=== PATIENT | female | born 1960 | race Caucasian/White ===

== ENCOUNTER 2017-05-24 05:55 | Day surgery (SDC) | payer BC, OTHER ==
[2017-05-24] MEDS ORDERED: Midazolam 1 MG/ML 2 ML SDV ONE (07:50)
[2017-05-24] MEDS ORDERED: fentaNYL 100 MCG/2 ML SDV ONE (07:50)
[2017-05-24] MEDS ORDERED: Propofol 200 MG/20 ML SDV ONE ×2 (07:50→08:35)
[2017-05-24] MEDS ORDERED: Lactated Ringers 1,000 ML IV SCH (08:30)
[2017-05-24 09:42] VITALS: BP 124/73
--- NOTE | 2017-05-24 14:38 | OR ---
DATE OF PROCEDURE: 05/24/2017 PREOPERATIVE DIAGNOSIS: Strong family history of colon cancer in sister and mother. POSTOPERATIVE DIAGNOSES: Diverticulosis, strong family history of colon cancer in sister and mother. PROCEDURE: Colonoscopy to the cecum. ANESTHESIA: IV anesthesia with monitored anesthesia care. INDICATION: This 57-year-old white female is referred for a colonoscopy because of a strong family history of colon cancer, both her mother and sister had colon cancer. She says her last colonoscopic exam was done about 5 years ago. I counseled her for the procedure including risks and alternatives, and she gave her informed consent to proceed. DESCRIPTION OF PROCEDURE: The patient was placed in a left lateral decubitus position. IV anesthesia was administered by the Anesthesia Service. Time-out was held. A rectal exam was performed, which was unremarkable. The flexible video Olympus colonoscope was introduced through her anus, up her rectum, and out her colon, all the way to the cecum. En route, we saw several left-sided diverticula. There was no bleeding or inflammation associated with any of them. Once the cecum was reached, the scope was slowly withdrawn, examining the mucosa throughout. No additional mucosal abnormalities were noted. The scope was retroflexed in the rectum with the distal rectum appearing unremarkable. The scope was straightened and removed. She tolerated the procedure well. PLAN: Repeat colonoscopy in 5 years. Sahil Parisi MD /[id number]
== END 2017-05-24 09:50 | disposition home or self-care (01) ==
LOC: JP.SDS 05:55
PROVIDERS: ATTEND Surgery
DX: Z12.11 Encounter for screening for malignant neoplasm of colon (principal); K57.30 Diverticulosis of large intestine without perforation or abscess without bleeding; Z80.0 Family history of malignant neoplasm of digestive organs; Z88.6 Allergy status to analgesic agent
CPT/HCPCS: 45378; J2250; J2704; J3010; J7120

== ENCOUNTER 2021-03-19 13:13 | Emergency (ER) | payer OTHER ==
[2021-03-19] MEDS ORDERED: Morphine 4 MG/ML Syringe IVPUSH PRN (14:06)
[2021-03-19] MEDS ORDERED: Aspirin 81 MG Tab.Chew PO ONE (14:06)
--- NOTE | 2021-03-19 14:09 | EDM.PDOC ---
ED HPI GENERAL MEDICAL PROBLEM - General Chief Complaint: Chest Pain Stated Complaint: CHEST PAIN Time Seen by Provider: 03/19/21 14:01 Source of Information: Reports: Patient, Family, RN Notes Reviewed History Limitations: Reports: No Limitations - History of Present Illness INITIAL COMMENTS - FREE TEXT/NARRATIVE: 61-year-old female presents emergency department day complaint of chest pain, she has had chest pain for the last 3 days comes and goes right now she describes it may be 3 or 4 out of 10 as a burning sensation she has had most of the day no nausea vomiting does feel short of breath when the pain gets intense she has no significant cardiac history family history mother had some type of heart disease but unknown details. Ex-smoker many years ago Middle Chest Pain Score (Numeric/FACES): 5 - Related Data Allergies Allergy/AdvReac Type Severity Reaction Status Date / Time acetaminophen [From Tylenol] Allergy Stomach Verified 03/19/21 13:46 Upset Home Meds: Home Meds Thyroid,Pork [[place] Thyroid] 90 mg PO DAILY 03/29/16 [History] Ascorbic Acid [Vitamin C] 1,000 mg PO DAILY 05/21/17 [History] Cholecalciferol (Vitamin D3) [Vitamin D3] 1,000 unit PO DAILY 05/21/17 [History] Iodine [Kelp] 225 mcg PO DAILY 05/21/17 [History] Magnesium Oxide [Magnesium] 400 mg PO DAILY 05/21/17 [History] Worton 3,6,9 Combination No.7 [Worton Dha] 92 mg PO DAILY 05/21/17 [History] Ubidecarenone [Coenzyme Q10] 400 mg PO DAILY 05/21/17 [History] Aspirin [Halfprin] 81 mg PO ASDIRECTED PRN 03/19/21 [History] Past Medical History HEENT History: Reports: Cataract, Impaired Vision 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: , 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 Musculoskeletal History: Reports: Back Pain, Chronic, Other (See Below) Other Musculoskeletal History: neck pain Endocrine/Metabolic History: Reports: Hypothyroidism, Obesity/BMI 30+ Hematologic History: Reports: Blood Transfusion(s) Oncologic (Cancer) History: Reports: Squamous Cell Carcinoma - Infectious Disease History Infectious Disease History: Reports: Chicken Pox, Measles, Mumps, Scarlet Fever - Past Surgical History Head Surgeries/Procedures: Reports: None HEENT Surgical History: Reports: None GI Surgical History: Reports: Colonoscopy Female Surgical History: Reports: Tubal Ligation Endocrine Surgical History: Reports: None Musculoskeletal Surgical History: Reports: None Oncologic Surgical History: Reports: None Dermatological Surgical History: Reports: None Social & Family History - Tobacco Use Tobacco Use Status *Q: Former Tobacco User Used Tobacco, but Quit: Yes Month/Year Tobacco Last Used: 1986 - Caffeine Use Caffeine Use: Reports: Coffee - Recreational Drug Use Recreational Drug Use: No ED ROS GENERAL - Review of Systems Review Of Systems: See Below Constitutional: Reports: No Symptoms HEENT: Reports: No Symptoms Respiratory: Reports: Shortness of Breath Cardiovascular: Reports: Chest Pain GI/Abdominal: Reports: No Symptoms ED EXAM, GENERAL - Physical Exam Exam: See Below Exam Limited By: No Limitations General Appearance: Alert, WD/WN, No Apparent Distress Respiratory/Chest: No Respiratory Distress, Lungs Clear, Normal Breath Sounds, No Accessory Muscle Use, Chest Non-Tender Cardiovascular: Regular Rate, Rhythm, No Murmur GI/Abdominal: Soft, Non-Tender #1 Interpretation EKG Date: 03/19/21 Time: 14:38 Rhythm: NSR [place]: Normal P-Wave: Present QRS: Normal ST-T: Normal QT: Normal Comparison: NA - No Prior EKG Course - Vital Signs Last Recorded V/S: Last Vital Signs Temp 94.5 F L 03/19/21 13:45 Pulse 63 03/19/21 18:18 Resp 24 H 03/19/21 18:18 BP 136/68 03/19/21 18:18 Pulse Ox 97 03/19/21 18:18 - Orders/Labs/Meds Orders: Active Orders 24 hr Category Date Time Status Cardiac Monitoring [RC] .As Directed Care 03/19/21 14:06 Active Peripheral IV Care [RC] . DIRECTED Care 03/19/21 15:28 Active Iopamidol [Isovue-370 (76%)] Med 03/19/21 15:45 Active 100 ml IV . DIRECTED Morphine Med 03/19/21 14:06 Active 4 mg IVPUSH Q10M PRN Nitroglycerin [Nitrostat] Med 03/19/21 14:06 Active 0.4 mg SL Q5M PRN Sodium Chloride 0.9% [Normal Saline] 1,000 ml Med 03/19/21 15:30 Active IV ASDIRECTED Sodium Chloride 0.9% [Normal Saline] 100 ml Med 03/19/21 15:45 Active IV ASDIRECTED Sodium Chloride 0.9% [Saline Flush] Med 03/19/21 15:28 Active 10 ml FLUSH ASDIRECTED PRN Peripheral IV Insertion Adult [OM.PC] Urgent Oth 03/19/21 15:28 Ordered EKG 12 Lead [EK] Stat Ther 03/19/21 14:07 Ordered Medication Orders Sodium Chloride (Normal Saline) 1,000 mls @ 500 mls/hr IV ASDIRECTED FAVIOLA Last Admin: 03/19/21 17:00 Dose: 500 mls/hr Documented by: ANTELMO Sodium Chloride (Normal Saline) 100 mls @ 3 mls/sec IV ASDIRECTED FAVIOLA Last Admin: 03/19/21 16:03 Dose: 3 mls/sec Documented by: LISS Iopamidol (Iopamidol 755 Mg/Ml 100 Ml Bottle) 100 ml IV . DIRECTED [facility] Last Admin: 03/19/21 16:03 Dose: 100 ml Documented by: LISS Morphine Sulfate (Morphine 4 Mg/Ml Syringe) 4 mg IVPUSH Q10M PRN PRN Reason: Chest Pain Stop: 03/20/21 14:06 Nitroglycerin (Nitroglycerin 0.4 Mg Tab.Sl) 0.4 mg SL Q5M PRN PRN Reason: Chest Pain Stop: 03/20/21 14:06 Last Admin: 03/19/21 14:45 Dose: 0.4 mg Documented by: Admin: 03/19/21 14:39 Dose: 0.4 mg Documented by: DIMITRY Sodium Chloride (Sodium Chloride 0.9% 10 Ml Syringe) 10 ml FLUSH ASDIRECTED PRN PRN Reason: Keep Vein Open Last Admin: 03/19/21 17:29 Dose: 10 ml Documented by: ANTELMO Labs: Laboratory Tests 03/19/21 03/19/21 Range/Units 14:21 14:21 WBC 7.7 (4.5-11.0) K/uL RBC 4.85 (3.30-5.50) M/uL Hgb 13.8 (12.0-15.0) g/dL Hct 42.9 (36.0-48.0) % MCV 89 (80-98) fL MCH 29 (27-31) pg MCHC 32 (32-36) % Plt Count 277 (150-400) K/uL Neut % (Auto) 58.0 (36-66) % Lymph % (Auto) 25.5 (24-44) % Reeves % (Auto) 8.4 H (2-6) % Eos % (Auto) 7.8 H (2-4) % Baso % (Auto) 0.3 (0-1) % Sodium 139 L (140-148) mmol/L Potassium 4.0 (3.6-5.2) mmol/L Chloride 104 (100-108) mmol/L Carbon Dioxide 28 (21-32) mmol/L Anion Gap 11.0 (5.0-14.0) mmol/L BUN 16 (7-18) mg/dL Creatinine 0.7 (0.6-1.0) mg/dL Est Cr Clr Drug Dosing 74.02 mL/min Estimated GFR (MDRD) > 60 (>60) Glucose 84 (74-106) mg/dL Calcium 9.2 (8.5-10.1) mg/dL Total Bilirubin 0.3 (0.2-1.0) mg/dL AST 16 (15-37) U/L ALT 35 (12-78) U/L Alkaline Phosphatase 110 (46-116) U/L Troponin I High Sens < 4.0 (<=60.3) pg/mL NT-Pro-B Natriuret Pep 16 (5-125) pg/mL Total Protein 7.4 (6.4-8.2) g/dL Albumin 3.7 (3.4-5.0) g/dL Globulin 3.7 H (2.3-3.5) g/dL Albumin/Globulin Ratio 1.0 L (1.2-2.2) Meds: Medications Generic Name Dose Route Start Last Admin Trade Name Freq PRN Reason Stop Dose Admin Sodium Chloride 1,000 mls @ 500 mls/hr 03/19/21 15:30 03/19/21 17:00 Normal Saline IV 500 mls/hr ASDIRECTED FAVIOLA Administration Sodium Chloride 100 mls @ 3 mls/sec 03/19/21 15:45 03/19/21 16:03 Normal Saline IV 3 mls/sec ASDIRECTED FAVIOLA Administration Iopamidol 100 ml 03/19/21 15:45 03/19/21 16:03 Iopamidol 755 Mg/Ml 100 Ml Bottle IV 100 ml . DIRECTED FAVIOLA Administration Morphine Sulfate 4 mg 03/19/21 14:06 Morphine 4 Mg/Ml Syringe IVPUSH 03/20/21 14:06 Q10M PRN Chest Pain Nitroglycerin 0.4 mg 03/19/21 14:06 03/19/21 14:45 Nitroglycerin 0.4 Mg Tab.Sl SL 03/20/21 14:06 0.4 mg Q5M PRN Administration Chest Pain Sodium Chloride 10 ml 03/19/21 15:28 03/19/21 17:29 Sodium Chloride 0.9% 10 Ml Syringe FLUSH 10 ml ASDIRECTED PRN Administration Keep Vein Open Discontinued Medications Generic Name Dose Route Start Last Admin Trade Name Freq PRN Reason Stop Dose Admin Aspirin 324 mg 03/19/21 14:06 03/19/21 14:22 Aspirin 81 Mg Tab.Chew PO 03/19/21 14:07 324 mg ONETIME ONE Administration Al Hydroxide/Mg Hydroxide 15 0 ml 03/19/21 15:14 03/19/21 15:28 ml/ Lidocaine HCl 15 ml PO 03/19/21 15:15 15 ml ONETIME ONE Administration Ketorolac Tromethamine 30 mg 03/19/21 17:13 03/19/21 17:24 Ketorolac 30 Mg/Ml Sdv IVPUSH 03/19/21 17:14 30 mg ONETIME ONE Administration Departure - Departure Time of Disposition: 18:25 Disposition: Home, Self-Care 01 Condition: Fair Clinical Impression: Atypical chest pain Instructions: Nonspecific Chest Pain, Adult Referrals: Se Astudillo MD [Primary Care Provider] - Forms: ED Department Discharge Additional Instructions: Continue to use nonsteroidal anti-inflammatory such as ibuprofen or naproxen, could also try Tylenol for pain relief, please followup with your primary care provider in 3-5 days if not better, please call return to the emergency department with worsening of symptoms. Sepsis Event Note (ED) - Focused Exam Vital Signs: Vital Signs Temp Pulse Resp BP BP Pulse Ox 03/19/21 18:18 63 24 H 136/68 97 03/19/21 17:10 62 20 121/53 L 95 03/19/21 16:13 66 22 H 117/66 99 03/19/21 15:43 60 15 117/57 L 12/01/21 14:51 72 101/50 L 03/19/21 14:47 72 108/49 L 03/19/21 14:45 108/49 L 03/19/21 14:42 68 118/51 L 03/19/21 14:39 114/44 L 03/19/21 13:45 94.5 F L 67 16 123/55 L 97 03/19/21 13:36 94.5 F L 67 16 123/55 L 97 - My Orders Last 24 Hours: My Active Orders 03/19/21 14:06 Cardiac Monitoring [RC] .As Directed Morphine 4 mg IVPUSH Q10M PRN Nitroglycerin [Nitrostat] 0.4 mg SL Q5M PRN 03/19/21 14:07 EKG 12 Lead [EK] Stat 03/19/21 15:28 Peripheral IV Care [RC] . DIRECTED Sodium Chloride 0.9% [Saline Flush] 10 ml FLUSH ASDIRECTED PRN Peripheral IV Insertion Adult [OM.PC] Urgent 03/19/21 15:30 Sodium Chloride 0.9% [Normal Saline] 1,000 ml IV ASDIRECTED 03/19/21 15:45 Iopamidol [Isovue-370 (76%)] 100 ml IV . DIRECTED Sodium Chloride 0.9% [Normal Saline] 100 ml IV ASDIRECTED - Assessment/Plan Last 24 Hours: My Active Orders 03/19/21 14:06 Cardiac Monitoring [RC] .As Directed Morphine 4 mg IVPUSH Q10M PRN Nitroglycerin [Nitrostat] 0.4 mg SL Q5M PRN 03/19/21 14:07 EKG 12 Lead [EK] Stat 03/19/21 15:28 Peripheral IV Care [RC] . DIRECTED Sodium Chloride 0.9% [Saline Flush] 10 ml FLUSH ASDIRECTED PRN Peripheral IV Insertion Adult [OM.PC] Urgent 03/19/21 15:30 Sodium Chloride 0.9% [Normal Saline] 1,000 ml IV ASDIRECTED 03/19/21 15:45 Iopamidol [Isovue-370 (76%)] 100 ml IV . DIRECTED Sodium Chloride 0.9% [Normal Saline] 100 ml IV ASDIRECTED Plan: Assessment Acuity = acute Site and laterality = atypical chest pain Etiology = suspicious for muscle skeletal Manifestations = none Location of injury = Home Lab values = CBC, CMP, troponin, BNP all within normal limits CT scan of the chest reveals no acute process Plan Minimal relief from nitro no relief from GI cocktail, did get some relief from Toradol, follow-up primary care next 3 to 5 days for reevaluation This note was dictated using [employer] voice recognition software please call with any questions on syntax or grammar.
[2021-03-19] MEDS: Nitroglycerin 0.4 MG Tab.SL SL PRN ×2 (14:39→14:45)
--- NOTE | 2021-03-19 14:43 | CRLCR ---
For Patients: As a result of the Century Cures Act, medical imaging exams and procedure reports are released immediately into your electronic medical record. You may view this report before your referring provider. If you have questions, please contact your health care provider. Indication: Chest pain. Technique: Chest 2 views. Comparison: None. Findings: Cardiovascular and mediastinum: Heart size and vasculature are normal in caliber and appearance. Lungs and pleural spaces: Lungs are clear. No sign of infiltrate or mass. No sign of pleural effusion. No pneumothorax. Bones and soft tissues: No significant findings. Impression: No acute or significant findings. Dictated by Flako Tavares MD @ 03/19/2021 2:42:28 PM (Electronically Signed)
[2021-03-19] MEDS ORDERED: Alum Hydrox/Mag Hydrox/Simeth 15 ML, Lidocaine 2% 15 ML PO ONE ×2 (15:14)
[2021-03-19] MEDS ORDERED: Sodium Chloride 0.9% 10 ML Syringe FLUSH PRN (15:28)
[2021-03-19] MEDS ORDERED: Sodium Chloride 0.9% 1,000 ML IV SCH (15:30)
[2021-03-19] MEDS ORDERED: Sodium Chloride 0.9% 100 ML IV SCH (15:45)
[2021-03-19] MEDS ORDERED: Iopamidol 755 Mg/ML 100 ML Bottle IV SCH (15:45)
--- NOTE | 2021-03-19 16:35 | CRLCT ---
For Patients: As a result of the Century Cures Act, medical imaging exams and procedure reports are released immediately into your electronic medical record. You may view this report before your referring provider. If you have questions, please contact your health care provider. INDICATION: Chest pain. TECHNIQUE: CT chest PE was acquired with 100 cc Isovue 370 IV contrast. COMPARISON: None. FINDINGS: Heart and vasculature: Contrast opacification of the pulmonary arterial tree is adequate. No sign of pulmonary embolism. Heart size is normal. Thoracic aorta and pulmonary artery are normal in caliber. Lungs and pleural: No suspicious nodules or infiltrates. Diffuse ground-glass opacities in the lower lobes are suggestive of atelectasis. No pleural effusions, pleural thickening, or pneumothorax. Lymph nodes/mediastinum: No mediastinal, hilar, or axillary adenopathy. Chest wall: No masses. Upper abdomen: No acute or significant findings. Bones: Unremarkable for age. IMPRESSION: 1. No pulmonary embolism. 2. No findings to suggest source of chest pain. Please note that all CT scans at this facility use dose modulation, iterative reconstruction, and/or weight-based dosing when appropriate to reduce radiation dose to as low as reasonably achievable. Dictated by Alfonzo Burt MD @ 03/19/2021 4:33:49 PM (Electronically Signed)
[2021-03-19] MEDS ORDERED: Ketorolac 30 MG/ML SDV IVPUSH ONE (17:13)
[2021-03-19 18:18] VITALS: BP 136/68; PULSE 63
== END 2021-03-19 18:44 | disposition home or self-care (01) ==
LOC: JP.ED 13:13
DX: R07.89 Other chest pain (principal); E03.9 Hypothyroidism, unspecified; E66.9 Obesity, unspecified; Z68.38 Body mass index [BMI] 38.0-38.9, adult; Z87.891 Personal history of nicotine dependence; Z88.6 Allergy status to analgesic agent; Z79.899 Other long term (current) drug therapy
CPT/HCPCS: 36415; 71046; 71275; 80053; 83880; 84484; 85025; 93005; 96374; 99285; A9270; J1885; J7030; Q9967